=== PATIENT | female | born 1975 ===

== ENCOUNTER 2024-03-22 07:27 | Outpatient (CLI) | payer OTHER | END 2024-03-22 07:33 | disposition home or self-care (01) | LOC: RAD 07:27 | PROVIDERS: ATTEND Obstetrics & Gynecology Gynecology | DX: R10.2 Pelvic and perineal pain (principal); R50.9 Fever, unspecified ==

== ENCOUNTER 2024-03-28 12:45 | Inpatient (IN) | payer OTHER ==
[~2024-03-28] VITALS: Ht 182.9 cm; Wt 79.4 kg
[~2024-03-28 12:45] MED LIST: CALCIUM500 M1; MAGNESIUM250 MG; OMEGA-31000 MG; TAMOXIFEN CITRA20 MG PO; VENLAFAXINE H37.5 M1 PO; VENLAFAXINE HCL75 M2 PO; VITAMIN B-121000 MC4; VITAMIN D31250 MCG
[2024-04-11] MEDS ORDERED: POVIDONE-IODINE 118 ML BOTT TOP ONE (13:30)
[2024-04-11] MEDS ORDERED: VISTASEAL DUAL APPICATOR 1 EACH APPL TOP ONE (13:30)
[2024-04-11] MEDS ORDERED: THROMBIN,HU/FIBRINOGEN/CALCIUM 10 ML SYRINGE TOP ONE (13:30)
[2024-04-11] MEDS ORDERED: CEFTRIAXONE SODIUM 2,000 MG VIAL IV ONE (13:30)
[2024-04-11] MEDS ORDERED: BUPIVACAINE HCL 30 ML VIAL IJ ONE (13:30)
[2024-04-11] MEDS ORDERED: METRONIDAZOLE/SODIUM CHLORIDE 500 MG/100 ML PIGGYBACK IV ONE ×2 (13:30)
[2024-04-11] MEDS ORDERED: LIDOCAINE HCL 1%/EPINEPHRINE 20ML VIAL IJ ONE (13:30)
[2024-04-11] MEDS ORDERED: ONDANSETRON HCL 2 MG/ML VIAL IV SCH (15:04)
[2024-04-11] MEDS ORDERED: ACETAMINOPHEN 325 MG TABLET PO SCH (15:05)
[2024-04-11] MEDS ORDERED: CELECOXIB 200 MG CAPSULE PO STA (15:05)
[2024-04-11] MEDS ORDERED: MORPHINE SULFATE 4 MG/ML CARTRIDGE IV SCH (15:08)
[2024-04-11] MEDS ORDERED: MORPHINE SULFATE 4 MG/ML VIAL IV ONE ×2 (16:05→17:30)
[2024-04-11] MEDS ORDERED: RINGERS SOLUTION,LACTATED 1,000 ML IV SCH (17:00)
[2024-04-11] MEDS ORDERED: GABAPENTIN 100 MG CAPSULE PO SCH (17:00)
[2024-04-11 17:32] LABS: HEMATOCRIT 36.8 % (36.0-45.00); HEMOGLOBIN 12.1 g/dL (12.0-15.00); MEAN CELL VOLUME 93.8 fL (80.00-100.00); PLATELET COUNT 268 K/uL (150-450); RED BLOOD COUNT 3.92 M/uL (4.00-6.00); RED CELL DISTRIBUTION WIDTH 14.1 % (11.5-14.5)
[2024-04-11 17:48] LABS: CALCIUM 8.4 mg/dL (8.5-10.1); CREATININE SERUM 0.84 mg/dL (0.55-1.02); GFR 71.77; POTASSIUM 3.61 mEq/L (3.5-5.1)
[2024-04-11 17:57] VITALS: BP 118/80
[2024-04-11] MEDS ORDERED: CEFAZOLIN SODIUM 1,000 MG VIAL IV SCH (21:00)
[2024-04-11 21:51] LABS: HEMOGLOBIN 11.9 g/dL (12.0-15.00); MEAN CELL VOLUME 91.9 fL (80.00-100.00); MEAN CORPUSCULAR HEMOGLOBIN 31.3 pg (27.00-32.0); MEAN CORPUSCULAR HGB CONC 34.1 g/dl (32.0-36.0); PLATELET COUNT 275 K/uL (150-450); RED BLOOD COUNT 3.81 M/uL (4.00-6.00)
[2024-04-12 00:34] VITALS: BP 110/70
[2024-04-12 07:44] LABS: HEMOGLOBIN 11.9 g/dL (12.0-15.00); MEAN CELL VOLUME 93.9 fL (80.00-100.00); PLATELET COUNT 257 K/uL (150-450); RED BLOOD COUNT 3.73 M/uL (4.00-6.00); RED CELL DISTRIBUTION WIDTH 13.8 % (11.5-14.5)
[2024-04-12 08:55] LABS: CALCIUM 8.2 mg/dL (8.5-10.1); CREATININE SERUM 0.62 mg/dL (0.55-1.02); GFR 101.89; POTASSIUM 3.67 mEq/L (3.5-5.1)
[2024-04-12 08:58] VITALS: BP 122/82
[2024-04-12] MEDS ORDERED: VENLAFAXINE 37.5 MG PO SCH (09:00)
[2024-04-12] MEDS ORDERED: VENLAFAXINE 75 MG PO SCH (09:00)
[2024-04-12 15:55] VITALS: BP 110/73
[2024-04-13] VITALS: BP 126/81
[2024-04-13 08:57] VITALS: BP 112/73
[2024-04-13] MEDS ORDERED: PATIENTS OWN MEDICATION (MEDICAMENTO EN PISO) PO SCH ×2 (09:00)
== END 2024-04-13 09:03 | disposition home or self-care (01) | DRG 743 ==
LOC: O/R 04-11 06:42 → OB/GYN 04-11 07:00
PROVIDERS: Surgery; Urology; ADMIT Obstetrics & Gynecology Gynecology; ATTEND Obstetrics & Gynecology Gynecology
PROC: 0DNW4ZZ Release Peritoneum, Percutaneous Endoscopic Approach (ICD-10-PCS; 2024-04-11)
PROC: 0UT64ZZ Resection of Left Fallopian Tube, Percutaneous Endoscopic Approach (ICD-10-PCS; 2024-04-11)
PROC: 0DTJ4ZZ Resection of Appendix, Percutaneous Endoscopic Approach (ICD-10-PCS; 2024-04-11)
PROC: 0T788DZ Dilation of Bilateral Ureters with Intraluminal Device, Via Natural or Artificial Opening Endoscopic (ICD-10-PCS; 2024-04-11)
PROC: 0UT94ZZ Resection of Uterus, Percutaneous Endoscopic Approach (ICD-10-PCS; principal; 2024-04-11 07:00)
PROC: 0UT24ZZ Resection of Bilateral Ovaries, Percutaneous Endoscopic Approach (ICD-10-PCS; 2024-04-11 07:00)
PROC: 0UN14ZZ Release Left Ovary, Percutaneous Endoscopic Approach (ICD-10-PCS; 2024-04-11 07:00)
DX: D25.1 Intramural leiomyoma of uterus (principal); N80.113 Superficial endometriosis of bilateral ovaries; N94.5 Secondary dysmenorrhea; N80.559 Endometriosis of other parts of the colon, unspecified depth; N80.03 Adenomyosis of the uterus; N80.102 Endometriosis of left ovary, unspecified depth; N80.202 Endometriosis of left fallopian tube, unspecified depth; Z20.822 Contact with and (suspected) exposure to COVID-19; K66.0 Peritoneal adhesions (postprocedural) (postinfection)